=== PATIENT | female | born 1970 | race Caucasian/White ===

== ENCOUNTER 2021-12-13 18:31 | Inpatient (IN) | payer BC ==
[2021-12-13] VITALS (7 sets, daily range): BP systolic 180–225; BP diastolic 97–142
[~2021-12-13] VITALS: Ht 163 cm; Wt 83.9 kg
[~2021-12-13 18:31] MED LIST: AMLO10TA82 PO; CEPH500C PO; DXZS4T PO; LISI20TA PO; OXYC-12 PO; vicodin 5/325 PO
[2021-12-13] MEDS ORDERED: LACTATED RINGERS 1,000 ML IV ONE (19:15)
[2021-12-13 19:17] LABS: BASOPHILS % (AUTO) 1 % (0-10); EOSINOPHILS % (AUTO) 0 % (0-10); HEMATOCRIT 34 % (35-52); HEMOGLOBIN 10.8 g/dL (11.5-16.0); LYMPHOCYTES # (AUTO) 0.8 10^3/uL (1.0-4.0); LYMPHOCYTES % (AUTO) 14 % (12-44); MEAN CORPUSCULAR HEMOGLOBIN 27 pg (25-34); MEAN CORPUSCULAR HGB CONC 32 g/dL (32-36); MEAN CORPUSCULAR VOLUME 86 fL (80-99); MEAN PLATELET VOLUME 9.9 fL (9.0-12.2); MONOCYTES # (AUTO) 0.3 10^3/uL (0.0-1.0); MONOCYTES % (AUTO) 5 % (0-12); NEUTROPHILS # (AUTO) 4.5 10^3/uL (1.8-7.8); NEUTROPHILS % (AUTO) 80 % (42-75); PLATELET COUNT 147 10^3/uL (130-400); WHITE BLOOD COUNT 5.6 10^3/uL (4.3-11.0)
--- NOTE | 2021-12-13 19:29 | ED General ---
General Chief Complaint: Dizziness/Syncope Stated Complaint: PASSED OUT Nursing Triage Note: PT STATES SHE PASSED OUT AT [facility], STARTED SEEING SPOTS AND WOKE UP TO THE AMBULANCE THERE, DAUGHTER WAS WITH HER AND HELPED HER TO THE FLOOR, WAS CONFUSED WHEN SHE WOKE UP, UNSTEADY ON HER FEET. PT HAS HYPERTENSION BUT DOES NOT TAKE HER MEDICATION EVERY DAY, DRINKS A PINT OF VODKA EVERY OTHER DAY. Source of Information: Patient History of Present Illness Date Seen by Provider: Dec 13, 2021 Time Seen by Provider: 19:10 Initial Comments PT ARRIVES VIA POV PT STATES SHE FEELS FINE NOW AND DOES NOT NEED TO BE HERE, I WALK IN THE ROOM PT WAS BROUGHT IN BY DAUGHTER PT HAD A WITNESSED SYNCOPAL EPISODE--PT STOOD UP, GOT DIZZY, "STARTED SEEING SPOTS" AND BRIEFLY PASSED OUT--NO INJURY--PT WAS ASSISTED TO THE FLOOR BY DAUGHTER--THIS OCCURRED AT [facility] WAS CALLED, THEN PT REFUSED CARE WHEN THEY ARRIVED. DAUGHTER REPORTED THAT PT WAS CONFUSED WHEN SHE WOKE UP, BUT THAT HAS RESOLVED. NO INCONTINENCE NO HEADACHE NO VISION CHANGES NO PARESHTESIAS OR MOTOR DEFICITS NO CHEST PAIN NO SHORTNESS OF BREATH NO PALPITATIONS DENIES PAIN ANYWHERE IS A LITTLE UNSTEADY ON HER FEET WHEN SHE WALKED INTO ER, BUT ABLE TO WALK ON H ER OWN--DENIES DIZZINESS AT THIS TIME, OR WITH WALKING STATES "I THINK I MIGHT HAVE COVID--I WAS GOING TO GET TESTED" STATES ON FRIDAY AND FRIDAY, SHE HAD NAUSEA/VOMITING AND COUGH/RUNNY NOSE/ SORE THROAT NO FEVER PT IS NOT COVID VACCINATED. PT IS SUPPOSED TO BE ON BLOOD PRESSURE MEDICATION, BUT DOES NOT TAKE IT ON ANY REGULAR BASIS PT ALSO DRINKS A PINT OF VODKA A DAY, BUT HAS NOT HAD ANY TODAY LMP --6 MONTHS AGO, HAS HAD BTL PCP: DR. RODRIGES Allergies and Home Medications Allergies Coded Allergies: NKANo Known Allergies (Verified Allergy, Intermediate, 06/10/12) Patient Home Medication List Amlodipine Besylate (Norvasc Tablet) 10 Mg Tablet, 1 EACH PO DAILY, (Reported) Entered as Reported by: JADE SHEPPARD on 06/15/10 0801 Cephalexin Monohydrate (Cephalexin) 500 Mg Capsule, 1 EACH PO QID, (Reported) Entered as Reported by: MONICA WHALEN on 07/24/10 0900 Lisinopril (Zestril) 20 Mg Tablet, 1 EACH PO DAILY, (Reported) Entered as Reported by: LUCA SZYMANSKI on 06/13/10 1042 [vicodin 5/325] , 1 TAB PO Q3H PRN, (Reported) Entered as Reported by: MONICA WHALEN on 07/24/10 0859 Review of Systems Review of Systems Constitutional: see HPI EENTM: see HPI, nose congestion, throat pain Respiratory: see HPI, cough; No short of breath Cardiovascular: No chest pain, No edema, No palpitations; syncope Gastrointestinal: No abdominal pain, No diarrhea; nausea, vomiting Genitourinary: no symptoms reported Musculoskeletal: no symptoms reported; No back pain, No neck pain Skin: no symptoms reported; No rash Psychiatric/Neurological: See HPI; Denies Headache, Denies Numbness, Denies Paresthesia, Denies Seizure, Denies Tingling, Denies Tremors, Denies Weakness Hematologic/Lymphatic: No Symptoms Reported Immunological/Allergic: no symptoms reported Past Uslanza-Rpgnlq-Lenxls Hx Patient Social History Tobacco Use?: No Substance use?: No Alcohol Use?: Yes (PINT OF VODKA/DAY) Alcohol type: Hard Liquor Alcohol Frequency: Daily Immunizations Up To Date Tetanus Booster (TDap): Unknown Past Medical History Surgery/Hospitalization HX: HYPERTENSION Cardiac: Yes Hypertension Neurological: No Genitourinary: No Gastrointestinal: No Musculoskeletal: No Endocrine: No HEENT: No Cancer: No Psychosocial: Yes (ALCOHOL ABUSE) Integumentary: No Blood Disorders: No Adverse Reaction/Blood Tranf: No Family Medical History No Pertinent Family Hx Physical Exam Vital Signs Vital Signs - First Documented 12/13/21 18:58 Temp 37.0 Pulse 112 Resp 20 B/P (MAP) 211/125 (153) Pulse Ox 99 O2 Delivery Room Air Capillary Refill : Less Than 3 Seconds Height, Weight, BMI Height: 5'3" Weight: 211lbs. oz. [id number]; 30.00 BMI Method: General Appearance: No Apparent Distress, WD/WN HEENT: PERRL/EOMI, TMs Normal, Normal ENT Inspection, Pharynx Normal, Moist Mucous Membranes Neck: Normal Inspection Respiratory: Normal Breath Sounds, No Accessory Muscle Use, No Respiratory Distress Cardiovascular: Regular Rate, Rhythm, No Edema, No JVD, No Murmur, Normal Peripheral Pulses Gastrointestinal: Non Tender, Soft Back: Normal Inspection, No CVA Tenderness, No Vertebral Tenderness Extremity: Normal Capillary Refill, Normal Inspection, Normal Range of Motion, Non Tender, No Calf Tenderness, No Pedal Edema Neurologic/Psychiatric: Alert, Oriented x3, No Motor/Sensory Deficits, Normal Mood/Affect, sugar grinder II-XII Norm as Tested Skin: Normal Color, Warm/Dry, Ecchymosis (BRUISES OF VARIOUS AGES SCATTERED OVER BODY--PT STATES SHE FELL OUT OF BED--HAS A [employer] BED) Progress/Results/Core Measures Suspected Sepsis SIRS Temperature: Pulse: 112 Respiratory Rate: 20 Laboratory Tests 12/13/21 19:05: White Blood Count 5.6 Blood Pressure 211 /125 Mean: 153 Laboratory Tests 12/13/21 19:05: Creatinine 0.85, INR Comment 1.0, Platelet Count 147, Total Bilirubin 2.2H Results/Orders Lab Results Laboratory Tests Test 12/13/21 19:05 12/13/21 19:25 Range/Units White Blood Count 5.6 4.3-11.0 10^3/uL Red Blood Count 3.97 3.80-5.11 10^6/uL Hemoglobin 10.8 L 11.5-16.0 g/dL Hematocrit 34 L 35-52 % Mean Corpuscular Volume 86 80-99 fL Mean Corpuscular Hemoglobin 27 25-34 pg Mean Corpuscular Hemoglobin Concent 32 32-36 g/dL Red Cell Distribution Width 25.3 H 10.0-14.5 % Platelet Count 147 130-400 10^3/uL Mean Platelet Volume 9.9 9.0-12.2 fL Immature Granulocyte % (Auto) 1 % Neutrophils (%) (Auto) 80 H 42-75 % Lymphocytes (%) (Auto) 14 12-44 % Monocytes (%) (Auto) 5 0-12 % Eosinophils (%) (Auto) 0 0-10 % Basophils (%) (Auto) 1 0-10 % Neutrophils # (Auto) 4.5 1.8-7.8 10^3/uL Lymphocytes # (Auto) 0.8 L 1.0-4.0 10^3/uL Monocytes # (Auto) 0.3 0.0-1.0 10^3/uL Eosinophils # (Auto) 0.0 0.0-0.3 10^3/uL Basophils # (Auto) 0.0 0.0-0.1 10^3/uL Immature Granulocyte # (Auto) 0.0 0.0-0.1 10^3/uL Erythrocyte Sedimentation Rate 17 0-30 MM/HR Prothrombin Time 13.3 12.2-14.7 SEC INR Comment 1.0 0.8-1.4 Activated Partial Thromboplast Time 25 24-35 SEC D-Dimer 0.32 0.00-0.49 UG/ML Sodium Level 137 135-145 MMOL/L Potassium Level 2.4 *L 3.6-5.0 MMOL/L Chloride Level 95 L 98-107 MMOL/L Carbon Dioxide Level 26 21-32 MMOL/L Anion Gap 16 H 5-14 MMOL/L Blood Urea Nitrogen 5 L 7-18 MG/DL Creatinine 0.85 0.60-1.30 MG/DL Estimat Glomerular Filtration Rate 83 BUN/Creatinine Ratio 6 Glucose Level 103 70-105 MG/DL Calcium Level 8.9 8.5-10.1 MG/DL Corrected Calcium 8.7 8.5-10.1 MG/DL Magnesium Level 1.1 *L 1.6-2.4 MG/DL Total Bilirubin 2.2 H 0.1-1.0 MG/DL Aspartate Amino Transf (AST/SGOT) 174 H 5-34 U/L Alanine Aminotransferase (ALT/SGPT) 73 H 0-55 U/L Alkaline Phosphatase 91 40-136 U/L Total Creatine Kinase 523 H 29-168 U/L C-Reactive Protein High Sensitivity 0.15 0.00-0.50 MG/DL B-Type Natriuretic Peptide 52.7 <100.0 PG/ML Total Protein 7.8 6.4-8.2 GM/DL Albumin 4.2 3.2-4.5 GM/DL Serum Test, Qualitative NEGATIVE NEGATIVE Serum Alcohol < 10 <10 MG/DL My Orders Orders - SHAQUILLE MCKEON DO Ekg Tracing (12/13/21 19:06) Ed Iv/Invasive Line Start (12/13/21 19:09) Monitor-Rhythm Ecg Trace Only (12/13/21 19:09) Orthostatic Vital Signs (Adult (12/13/21 19:09) Cbc With Automated Diff (12/13/21 19:09) Comprehensive Metabolic Panel (12/13/21 19:09) Fibrin Degradation Products (12/13/21 19:09) Hcg,Qualitative Serum (12/13/21 19:09) Magnesium (12/13/21 19:09) Protime With Inr (12/13/21 19:09) Partial Thromboplastin Time (12/13/21 19:09) Ua Culture If Indicated (12/13/21 19:09) Troponin I [place] (12/13/21 19:09) Chest 1 View, Ap/Pa Only (12/13/21 19:09) Ed Iv/Invasive Line Start (12/13/21 19:11) Lactated Ringers (Lr 1000 Ml Iv Solution (12/13/21 19:15) Ct Head Wo-R/O Stroke (12/13/21 19:11) Ct Cervical Spine Wo (12/13/21 19:11) Alcohol (12/13/21 19:11) Bnp Jose (12/13/21 19:11) Creatine Kinase (12/13/21 19:11) Creatine Kinase Mb (12/13/21 19:11) Hs C Reactive Protein (12/13/21 19:11) Drug Screen Stat (Urine) (12/13/21 19:11) Thyroid Analyzer (12/13/21 19:11) Erythrocyte Sedimentation Rate (12/13/21 19:11) Myoglobin Serum (12/13/21 19:11) Covid 19 Inhouse Test (12/13/21 19:11) Influenza A And B By Pcr (12/13/21 19:11) Isolation Central Supply Req (12/13/21 19:11) D5 1/2 Ns W/Kcl 40 Meq/L (Dextrose 5%/0. (12/13/21 20:00) Magnesium 1 Gm/100 Ml Ivpb (Magnesium Turner (12/13/21 20:00) Vital Signs/I&O 12/13/21 18:58 Temp 37.0 Pulse 112 Resp 20 B/P (MAP) 211/125 (153) Pulse Ox 99 O2 Delivery Room Air Capillary Refill : Less Than 3 Seconds Blood Pressure Mean: 153 Departure Departure-Patient Inst. Referrals: GREGORY RODRIGES MD (PCP/Family) Primary Care Physician SHAQUILLE MCKEON DO Dec 13, 2021 19:29
[2021-12-13 19:31] LABS: FIBRIN DEGRADATION PRODUCTS 0.32 UG/ML (0.00-0.49); PROTHROMBIN TIME PATIENT 13.3 SEC (12.2-14.7)
--- NOTE | 2021-12-13 19:32 | Diagnostic Imaging Report ---
INDICATION: Passed out earlier today, dizziness. TECHNIQUE: Single view chest 7:11 PM. CORRELATION STUDY: None. FINDINGS: Heart size and mediastinum are enlarged and prominent. Vasculature overall within normal limits. This may be accentuated by technique and limited depth of inspiration. The lungs are clear with no consolidating infiltrate. There is no significant effusion or pneumothorax. IMPRESSION: Cardiac enlargement without overt failure. May be accentuated by limited depth of inspiration. No infiltrate. Dictated by: Dictated on workstation # [id number]
[2021-12-13 19:34] LABS: ERYTHROCYTE SEDIMENTATION RATE 17 MM/HR (0-30)
--- NOTE | 2021-12-13 19:35 | Diagnostic Imaging Report ---
PROCEDURE: CT head wo r/o stroke. TECHNIQUE: Multiple contiguous axial images were obtained through the brain without the use of intravenous contrast. Auto Exposure Controls were utilized during the CT exam to meet ALARA standards for radiation dose reduction. INDICATION: 51-year-old female, passed out at [employer] earlier today. Hypertensive. CORRELATION: None FINDINGS: There is no midline shift or mass effect. The ventricles and sulci are unremarkable. No evidence for acute intracranial hemorrhage, abnormal extra-axial fluid collections or cerebral edema is present. The basilar cisterns are unremarkable. The bony calvarium is intact. The visualized paranasal sinuses and mastoid air cells are clear. IMPRESSION: Negative appearing noncontrast CT of the head. Dictated by: Dictated on workstation # [id number]
[2021-12-13 19:40] LABS: ALANINE AMINOTRANSFERASE 73 U/L (0-55); ALBUMIN 4.2 GM/DL (3.2-4.5); ALKALINE PHOSPHATASE 91 U/L (40-136); BILIRUBIN,TOTAL 2.2 MG/DL (0.1-1.0); BUN/CREATININE RATIO 6; CALCIUM 8.9 MG/DL (8.5-10.1); CARBON DIOXIDE 26 MMOL/L (21-32); CHLORIDE 95 MMOL/L (98-107); CREATINE KINASE 523 U/L (29-168); CREATININE SERUM 0.85 MG/DL (0.60-1.30); GFR ESTIMATED 83; GLUCOSE 103 MG/DL (70-105); SODIUM 137 MMOL/L (135-145); TOTAL PROTEIN 7.8 GM/DL (6.4-8.2)
[2021-12-13 19:50] LABS: POTASSIUM 2.4 MMOL/L (3.6-5.0)
[2021-12-13 19:51] LABS: MAGNESIUM 1.1 MG/DL (1.6-2.4)
[2021-12-13 19:59] LABS: TSH (THYROID ANALYZER) 0.66 UIU/ML (0.35-4.94)
[2021-12-13] MEDS ORDERED: D5 1/2 NS W/KCL 40 MEQ/L 1,000 ML IV SCH (20:00)
[2021-12-13] MEDS ORDERED: hydrALAZINE (APESOLINE) 20 MG/ML VIAL IV ONE (20:00)
[2021-12-13 20:06] LABS: CREATINE KINASE MB 10.2 NG/ML (<6.6)
--- NOTE | 2021-12-13 20:09 | Diagnostic Imaging Report ---
PROCEDURE: CT cervical spine without contrast. TECHNIQUE: Multiple contiguous axial images were obtained through the cervical spine without the use of intravenous contrast. Sagittal and coronal reformations were then performed. Auto Exposure Controls were utilized during the CT exam to meet ALARA standards for radiation dose reduction. 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 CORRELATION STUDY: None FINDINGS: There is normal alignment and curvature of the cervical spine. There is no evidence for acute bony abnormality. The odontoid is intact. The prevertebral soft tissues are normal. Lung apices unremarkable. IMPRESSION: 1. No evidence for acute cervical spine fracture or subluxation. Dictated by: Dictated on workstation # [id number]
[2021-12-13 21:07] LABS: BILIRUBIN,URINE NEGATIVE (NEGATIVE); CLARITY,URINE SL CLOUDY; COLOR,URINE YELLOW; GLUCOSE, URINE (UA) NEGATIVE (NEGATIVE); KETONES,URINE TRACE (NEGATIVE); LEUKOCYTE ESTERASE ,URINE NEGATIVE (NEGATIVE); NITRITE,URINE NEGATIVE (NEGATIVE); PH,URINE 6.5 (5-9); PROTEIN,URINE NEGATIVE (NEGATIVE)
[2021-12-13 21:30] LABS: AMPHETAMINE SCREEN, URINE NEGATIVE (NEGATIVE); BARBITURATE SCREEN URINE NEGATIVE (NEGATIVE); BENZODIAZEPINES SCREEN URINE POSITIVE (NEGATIVE); CANNABINOID SCREEN, URINE NEGATIVE (NEGATIVE); COCAINE SCREEN URINE NEGATIVE (NEGATIVE); METHADONE STAT NEGATIVE (NEGATIVE); OPIATE SCREEN URINE NEGATIVE (NEGATIVE); OXYCODONE STAT NEGATIVE (NEGATIVE); PROPOXYPHENE STAT NEGATIVE (NEGATIVE); TRICYCLIC ANTIDEPRESSANTS SCRE NEGATIVE (NEGATIVE)
[2021-12-13 21:39] LABS: BACTERIA,URINE FEW /HPF; HYALINE CASTS, URINE RARE /LPF; WBC,URINE 0-2 /HPF
[2021-12-13] MEDS: MAGNESIUM 1 GM/100 ML IVPB 100 ML IV SCH (22:06)
[2021-12-13] MEDS: D5 1/2 NS W/KCL 40 MEQ/L 1,000 ML IV SCH (22:07)
[2021-12-13] MEDS: amLODIPine 10 MG (NORVASC) TAB PO SCH (22:10)
[2021-12-13] MEDS: lisINopril 10 MG (PRINIVIL) TABLET PO SCH (22:10)
[2021-12-13] MEDS ORDERED: ONDANSETRON 4 MG (ZOFRAN) ORAL DISSOLVE TAB SL PRN (22:15)
[2021-12-13] MEDS ORDERED: LORazepam 1 MG (ATIVAN) TAB PO PRN (22:15)
[2021-12-13] MEDS ORDERED: SENNA W/DOCUSATE (SENOKOT S) TABLET PO PRN (22:15)
[2021-12-13] MEDS ORDERED: 1/2 NS IV SOLUTION 1,000 ML IV PRN (22:15)
[2021-12-13] MEDS ORDERED: D5 1/2 NS 1000 ML IV SOLUTION 1,000 ML IV PRN (22:15)
[2021-12-13] MEDS ORDERED: ANTACID SUSP 30 ML UDC (MYLANTA) PO PRN (22:15)
[2021-12-13] MEDS ORDERED: ONDANSETRON 4 MG/2 ML (SDV) Z0FRAN IV PRN (22:15)
[2021-12-13] MEDS: ACETAMINOPHEN 325 MG TABLET PO PRN (22:47)
[2021-12-14] VITALS (11 sets, daily range): BP systolic 146–190; BP diastolic 90–113
[2021-12-14] MEDS ORDERED: hydrALAZINE (APESOLINE) 20 MG/ML VIAL IV ONE (00:15)
[2021-12-14] MEDS: MAGNESIUM 1 GM/100 ML IVPB 100 ML IV SCH (00:49)
[2021-12-14] MEDS: LORazepam 1 MG (ATIVAN) TAB PO PRN ×4 (01:45→15:55)
[2021-12-14] MEDS: D5 1/2 NS W/KCL 40 MEQ/L 1,000 ML IV SCH (04:45)
[2021-12-14 05:05] LABS: BASOPHILS % (AUTO) 1 % (0-10); EOSINOPHILS % (AUTO) 1 % (0-10); HEMATOCRIT 32 % (35-52); HEMOGLOBIN 10.1 g/dL (11.5-16.0); LYMPHOCYTES % (AUTO) 19 % (12-44); MEAN CORPUSCULAR HEMOGLOBIN 27 pg (25-34); MEAN CORPUSCULAR HGB CONC 32 g/dL (32-36); MEAN CORPUSCULAR VOLUME 85 fL (80-99); MEAN PLATELET VOLUME 9.8 fL (9.0-12.2); MONOCYTES # (AUTO) 0.5 10^3/uL (0.0-1.0); MONOCYTES % (AUTO) 9 % (0-12); NEUTROPHILS # (AUTO) 3.9 10^3/uL (1.8-7.8); NEUTROPHILS % (AUTO) 71 % (42-75); PLATELET COUNT 126 10^3/uL (130-400); WHITE BLOOD COUNT 5.5 10^3/uL (4.3-11.0)
[2021-12-14 05:20] LABS: ALBUMIN 3.4 GM/DL (3.2-4.5)
[2021-12-14 05:22] LABS: CALCIUM 8.3 MG/DL (8.5-10.1)
[2021-12-14 05:23] LABS: TOTAL PROTEIN 6.5 GM/DL (6.4-8.2)
[2021-12-14 05:25] LABS: BILIRUBIN,TOTAL 2.1 MG/DL (0.1-1.0)
[2021-12-14 05:26] LABS: CREATININE SERUM 0.6 MG/DL (0.60-1.30)
[2021-12-14 05:29] LABS: MAGNESIUM 1.8 MG/DL (1.6-2.4)
[2021-12-14 05:30] LABS: POTASSIUM 2.5 MMOL/L (3.6-5.0)
[2021-12-14] MEDS ORDERED: KCL 20 MEQ TAB (K-DUR) PO ONE (05:45)
[2021-12-14] MEDS: ACETAMINOPHEN 325 MG TABLET PO PRN (06:26)
--- NOTE | 2021-12-14 07:51 | History & Physicial ---
History of Present Illness History of Present Illness Reason for visit/HPI 51-year-old female admitted through emergency department during the evening of December 13, 2021 after passing out in [employer]. She does have known hypertension but hasn't been real compliant about taking her medications. Patient was brought in by her daughter who was with her at the time of the event. Apparently patient started seeing spots and passed out. She reports wakening to emergency personnel and a bunch of people standing around her. She did not strike her head as her daughter caught her. She denies any chest pain, shortness of breath or palpitations. She has been under some stress and does report taking an occasional alprazolam. She also admits to me today that she had been drinking about a pint of vodka daily. She had been keeping this secret and was somewhat embarrassed to admit to it. Date of Admission Dec 13, 2021 at 20:30 Date Seen by a Provider: Dec 14, 2021 Time Seen by a Provider: 07:15 I consulted on this patient on 12/14/21 07:46 Attending Physician Varun Rodriges MD Admitting Physician Admitting Physician: Varun Rodriges MD Attending Physician: Varun Rodriges MD Consult Allergies and Home Medications Allergies Coded Allergies: AVRILANo Known Allergies (Verified Allergy, Intermediate, 06/10/12) Patient Home Medication List Home Medication List Reviewed: Yes Amlodipine Besylate (Norvasc Tablet) 10 Mg Tablet, 1 EACH PO DAILY, (Reported) Entered as Reported by: JADE SHEPPARD on 06/15/10 0801 Cephalexin Monohydrate (Cephalexin) 500 Mg Capsule, 1 EACH PO QID, (Reported) Entered as Reported by: MONICA WHALEN on 07/24/10 0900 Lisinopril (Zestril) 20 Mg Tablet, 1 EACH PO DAILY, (Reported) Entered as Reported by: LUCA SZYMANSKI on 06/13/10 1042 [vicodin 5/325] , 1 TAB PO Q3H PRN, (Reported) Entered as Reported by: MONICA WHALEN on 07/24/10 0859 Past Eiyeiso-Hganxh-Sxsqop Hx Patient Social History Marrital Status: Employed/Student: employed ([employer]) Alcohol Beverage of Choice: Vodka Have you traveled recently?: No Alcohol Use?: Yes Pt feels they are or have been: No Immunizations Up To Date Tetanus Booster (TDap): Unknown Cardiovascular Yes Hypertension Neurological No Genitourinary No Gastrointestinal No Musculoskeletal No Endocrine History of Endocrine Disorders: No HEENT History of HEENT Disorders: No Cancer No Psychosocial History of Psychiatric Problem: Yes (ALCOHOL ABUSE) Integumentary History of Skin or Integumenta: No Blood Transfusions History of Blood Disorders: No Adverse Reaction to a Blood Tr: No Family Medical History Significant Family History: No Pertinent Family Hx Review of Systems Constitutional: see HPI Physical Exam Vital Signs Vital Signs - First Documented 12/13/21 12/13/21 18:58 21:10 Temp 37.0 Pulse 112 Resp 20 B/P (MAP) 211/125 (153) Pulse Ox 99 O2 Delivery Room Air O2 Flow Rate 196.00 119.00 Capillary Refill : Less Than 3 Seconds Height, Weight, BMI Height: 5'3" Weight: 211lbs. oz. 95.777270nq; 31.57 BMI Method: General Appearance: No Apparent Distress (in ICU) Eyes: Bilateral Eye Normal Inspection Neck: Full Range of Motion Respiratory: Lungs Clear Cardiovascular: Regular Rate, Rhythm Gastrointestinal: Soft Rectal: Deferred Neurologic/Psychiatric: Alert, Oriented x3 Comments [facility], [place] NAME: MCKENNA DIAZ MED REC#: [id number] PT STATUS: REG ER : 1970 PHYSICIAN: SHAQUILLE MCKEON DO ADMIT DATE: 12/13/21/ER Signed Date of Exam:12/13/21 CHEST 1 VIEW, AP/PA ONLY INDICATION: Passed out earlier today, dizziness. TECHNIQUE: Single view chest 7:11 PM. CORRELATION STUDY: None. FINDINGS: Heart size and mediastinum are enlarged and prominent. Vasculature overall within normal limits. This may be accentuated by technique and limited depth of inspiration. The lungs are clear with no consolidating infiltrate. There is no significant effusion or pneumothorax. IMPRESSION: Cardiac enlargement without overt failure. May be accentuated by limited depth of inspiration. No infiltrate. Dictated by: Dictated on workstation # [id number] Dict: 12/13/[id number] Trans: 12/13/212032 [facility] [id number] Interpreted by: DREW BOB DO Electronically signed by: RDEW BOB DO 12/13/212032 Assessment/Plan Assessment and Plan 1. Uncontrolled hypertension -Patient has received hydralazine 10 mg IV twice since admission. -She was started back on her home medication lisinopril 20 along with amlodipine 5 mg daily -Cardiology input and whether she needs further cardiac testing 2. Syncopal episode etiology multifactorialas she has had uncontrolled hypertension, stress, medication alprazolam, as well as alcohol -No further syncopal episodes since admitted. 3. Hypokalemia -Replacement given through IV fluids as well as by mouth Admission Diagnosis 1. Uncontrolled hypertension 2. Syncopal episode etiology multifactorialas she has had uncontrolled hypertension, stress, medication alprazolam, as well as alcohol 3. Hypokalemia Admission Status: Inpatient Order (span 2 midnights) Reason for Inpatient Admission: further blood pressure monitoring, correction of hypokalemia, cardiology consultation VARUN RODRIGES MD Dec 14, 2021 07:51
[2021-12-14] MEDS: lisINopril 10 MG (PRINIVIL) TABLET PO SCH (08:12)
[2021-12-14] MEDS: amLODIPine 10 MG (NORVASC) TAB PO SCH (08:12)
[2021-12-14] MEDS: KCL 20 MEQ TAB (K-DUR) PO SCH ×2 (08:21→20:27)
[2021-12-14] MEDS ORDERED: meTOproloL SUCCINATE 50 MG (TOPROL XL) TAB PO NR (08:30)
--- NOTE | 2021-12-14 08:43 | Consultation-Cardiology ---
HPI-Cardiology Cardiology Consultation: Date of Consultation 12/14/21 Time Seen by a Provider: 08:15 Date of Admission 12-13-21 Attending Physician Varun Garcia MD Admitting Physician Admitting Physician: Varun Garcia MD Attending Physician: Varun Garcia MD Consulting Physician Camelia Delong MD HPI: Chief Complaint: Syncope Ms. Keene is a 51 yr old female admitted to ICU 11 from the ED. She reports she was at [employer] yesterday with her daughter when she started to feel unwell. She reports she was seeing spots and then she passed out. She reports the next thing she recalls she was on the floor surrounded by [employer] employees and the police. She reports she has never had a syncopal episode yet. She reports she drinks daily, at least a pint of Vodka every other day. She reports she has not eaten any food in about the last 3 days. She reports she has had some nausea and diarrhea the last few days. She denies any CP or SOB. She reports occ she feels her heart fluttering. She reports she will take a Xanax occ from her friend (they are not Rx'd to the pt). She reports he last Xanax was a few days ago. She reports h/o high blood pressure, but she does not take her Lisinopril that has been Rx'd to her. She reports h/o anxiety. She states she is feeling much better this morning except for some nausea. Review of Systems-Cardiology Review of Systems Constitutional: No chills, No fever; malaise Eyes: No vision change Ears/Nose/Throat: No epistaxis, No recent hearing loss Respiratory: As described under HPI Cardiovascular: As described under HPI Gastrointestinal: As described under HPI Genitourinary: No dysuria, No hematuria Musculoskeletal: no symptoms reported Skin: No rash on exposed areas, No ulcerations on exposed areas Psychiatric/Neurological: As described under HPI, anxiety, depression Hematologic: No bleeding abnormalities LLS-Fmllmb-Sucwsw Hx Patient Social History Marrital Status: Employed/Student: employed ([employer]) Have you traveled recently?: No Alcohol Use?: Yes Pt feels they are or have been: No Immunizations Up To Date Tetanus Booster (TDap): Unknown Past Medical History PMH As described under Assessment. Family Medical History Family Medical History: She reports he mother had high blood pressure and a brain aneurysm. Allergies and Home Medications Allergies Coded Allergies: Romero Known Allergies (Verified Allergy, Intermediate, 06/10/12) Patient Home Medication List Aspirin (Aspirin EC) 81 Mg Tablet.dr, 81 MG PO DAILY, (Reported) Entered as Reported by: LAVELLE COTTRELL on 12/14/21 1245 Last Action: Reviewed Omeprazole Magnesium (Prilosec Otc) 20 Mg Tablet.dr, 20 MG PO DAILY PRN for HEARTBURN, (Reported) Entered as Reported by: LAVELLE COTTRELL on 12/14/21 1245 Last Action: Reviewed Discontinued Medications Amlodipine Besylate (Norvasc Tablet) 10 Mg Tablet, 1 EACH PO DAILY, (Reported) Discontinued Reason: No Longer Taking Entered as Reported by: JADE SHEPPARD on 06/15/10 0801 Last Action: Discontinued Cephalexin Monohydrate (Cephalexin) 500 Mg Capsule, 1 EACH PO QID, (Reported) Discontinued Reason: No Longer Taking Entered as Reported by: MONICA WHALEN on 07/24/10 0900 Last Action: Discontinued Lisinopril (Zestril) 20 Mg Tablet, 1 EACH PO DAILY, (Reported) Discontinued Reason: No Longer Taking Entered as Reported by: LUCA SZYMANSKI on 06/13/10 1042 Last Action: Discontinued [vicodin 5/325] , 1 TAB PO Q3H PRN, (Reported) Discontinued Reason: No Longer Taking Entered as Reported by: MONICA WHALEN on 07/24/10 0859 Last Action: Discontinued Physical Exam-Cardiology Physical Exam Vital Signs/I&O 12/14/21 12/14/21 12/14/21 12/14/21 03:00 04:00 05:00 05:29 Pulse 80 81 105 Resp 20 23 24 B/P (MAP) 165/90 (115) 151/94 (113) 183/103 (129) Pulse Ox 97 97 97 95 O2 Delivery Room Air Room Air Room Air Room Air 12/14/21 12/14/21 12/14/21 12/14/21 06:00 07:00 08:00 08:00 Temp 37.2 Pulse 76 87 83 Resp 24 24 B/P (MAP) 146/92 (110) 174/90 (118) Pulse Ox 95 97 O2 Delivery Room Air Room Air 12/14/21 12/14/21 12/14/21 12/14/21 08:00 12:00 12:00 12:57 Pulse 68 67 Resp 15 B/P (MAP) 181/113 (135) Pulse Ox 96 100 94 O2 Delivery Room Air Room Air Room Air 12/14/21 00:00 Intake Total 1100 ml Balance 1100 ml Capillary Refill : Less Than 3 Seconds Constitutional: AAO x 3, well-developed, well-nourished HEENT: PERRL, hearing is well preserved, oral hygience is good Neck: No carotid bruit; carotid pulses are 2 + bilaterally Respiratory: No accessory muscle use, No respiratory distress; chest expansion is symmetric, chest is bilaterally symmetric Cardiovascular: regular rate-rhythm; No JVD; S1 and S2 Gastrointestinal: No tender; soft, round, audible bowel sounds Extremities: abrasion (RLE with a healing abrasion and bruising to her right ankle), no lower extremity edema bilateral Neurologic/Psychiatric: grossly intact (moves all extremities) Skin: No rash on exposed areas, No ulcerations on exposed areas Data Review Labs Laboratory Tests 12/13/21 19:05: White Blood Count 5.6, Red Blood Count 3.97, Hemoglobin 10.8L, Hematocrit 34L, Mean Corpuscular Volume 86, Mean Corpuscular Hemoglobin 27, Mean Corpuscular Hemoglobin Concent 32, Red Cell Distribution Width 25.3H, Platelet Count 147, Mean Platelet Volume 9.9, Immature Granulocyte % (Auto) 1, Neutrophils (%) (Auto) 80H, Lymphocytes (%) (Auto) 14, Monocytes (%) (Auto) 5, Eosinophils (%) (Auto) 0, Basophils (%) (Auto) 1, Neutrophils # (Auto) 4.5, Lymphocytes # (Auto) 0.8L, Monocytes # (Auto) 0.3, Eosinophils # (Auto) 0.0, Basophils # (Auto) 0.0, Immature Granulocyte # (Auto) 0.0, Erythrocyte Sedimentation Rate 17, Prothrombin Time 13.3, INR Comment 1.0, Activated Partial Thromboplast Time 25, D-Dimer 0.32, Sodium Level 137, Potassium Level 2.4*L, Chloride Level 95L, Carbon Dioxide Level 26, Anion Gap 16H, Blood Urea Nitrogen 5L, Creatinine 0.85, Estimat Glomerular Filtration Rate 83, BUN/Creatinine Ratio 6, Glucose Level 103, Calcium Level 8.9, Corrected Calcium 8.7, Magnesium Level 1.1*L, Total Bilirubin 2.2H, Aspartate Amino Transf (AST/SGOT) 174H, Alanine Aminotransferase (ALT/SGPT) 73H, Alkaline Phosphatase 91, Total Creatine Kinase 523H, Creatine Kinase MB 10.2*H, Myoglobin 915.8H, Troponin I < 0.028, C-Reactive Protein High Sensitivity 0.15, B-Type Natriuretic Peptide 52.7, Total Protein 7.8, Albumin 4.2, TSH [place] Testing 0.66, Serum Test, Qualitative NEGATIVE, Serum Alcohol < 10 12/13/21 19:25: Influenza Type A (RT-PCR) Not Detected, Influenza Type B (RT-PCR) Not Detected, SARS-CoV-2 RNA (RT-PCR) Not Detected 12/13/21 20:54: Urine Color YELLOW, Urine Clarity SL CLOUDY, Urine pH 6.5, Urine Specific [employer] 1.010L, Urine Protein NEGATIVE, Urine Glucose (UA) NEGATIVE, Urine [place] es TRACEH, Urine Nitrite NEGATIVE, Urine Bilirubin NEGATIVE, Urine Urobilinogen 2.0, Urine Leukocyte Esterase NEGATIVE, Urine RBC (Auto) NEGATIVE, Urine RBC NONE, Urine WBC 0-2, Urine Crystals NONE, Urine Bacteria FEWH, Urine Casts PRESENT, Urine Hyaline Casts RARE, Urine Mucus NEGATIVE, Urine Culture Indicated YES, Urine Opiates Screen NEGATIVE, Urine Oxycodone Screen NEGATIVE, Urine Methadone Screen NEGATIVE, Urine Propoxyphene Screen NEGATIVE, Urine Barbiturates Screen NEGATIVE, Ur Tricyclic Antidepressants Screen NEGATIVE, Urine Phencyclidine Screen NEGATIVE, Urine Amphetamines Screen NEGATIVE, Urine Methamphetamines Screen NEGATIVE, Urine Benzodiazepines Screen POSITIVEH, Urine Cocaine Screen NEGATIVE, Urine Cannabinoids Screen NEGATIVE 12/14/21 04:55: White Blood Count 5.5, Red Blood Count 3.73L, Hemoglobin 10.1L, Hematocrit 32L, Mean Corpuscular Volume 85, Mean Corpuscular Hemoglobin 27, Mean Corpuscular Hemoglobin Concent 32, Red Cell Distribution Width 25.6H, Platelet Count 126L, Mean Platelet Volume 9.8, Immature Granulocyte % (Auto) 0, Neutrophils (%) (Auto) 71, Lymphocytes (%) (Auto) 19, Monocytes (%) (Auto) 9, Eosinophils (%) (Auto) 1, Basophils (%) (Auto) 1, Neutrophils # (Auto) 3.9, Lymphocytes # (Auto) 1.0, Monocytes # (Auto) 0.5, Eosinophils # (Auto) 0.0, Basophils # (Auto) 0.0, Immature Granulocyte # (Auto) 0.0, Sodium Level 139, Potassium Level 2.5*L, Chloride Level 101, Carbon Dioxide Level 25, Anion Gap 13, Blood Urea Nitrogen 4L, Creatinine 0.60, Estimat Glomerular Filtration Rate 109, BUN/Creatinine Ratio 7, Glucose Level 109H, Calcium Level 8.3L, Corrected Calcium 8.8, Magnesium Level 1.8, Total Bilirubin 2.1H, Aspartate Amino Transf (AST/SGOT) 119H, Alanine Aminotransferase (ALT/SGPT) 55, Alkaline Phosphatase 76, Total Protein 6.5, Albumin 3.4 12/14/21 13:20: Sodium Level 140, Potassium Level 2.8L, Chloride Level 104, Carbon Dioxide Level 26, Anion Gap 10, Blood Urea Nitrogen 2L, Creatinine 0.62, Estimat Glomerular Filtration Rate 108, BUN/Creatinine Ratio 3, Glucose Level 114H, Calcium Level 8.2L Radiology NAME: MCKENNA KEENE [facility] REC#: [id number] PT STATUS: REG ER : 1970 PHYSICIAN: SHAQUILLE MCKEON DO ADMIT DATE: 12/13/21/ER Signed Date of Exam:12/13/21 CHEST 1 VIEW, AP/PA ONLY INDICATION: Passed out earlier today, dizziness. TECHNIQUE: Single view chest 7:11 PM. CORRELATION STUDY: None. FINDINGS: Heart size and mediastinum are enlarged and prominent. Vasculature overall within normal limits. This may be accentuated by technique and limited depth of inspiration. The lungs are clear with no consolidating infiltrate. There is no significant effusion or pneumothorax. IMPRESSION: Cardiac enlargement without overt failure. May be accentuated by limited depth of inspiration. No infiltrate. Dictated by: Dictated on workstation # [id number] Dict: 12/13/211925 Trans: 12/13/212032 [facility] [id number] Interpreted by: DREW OBB DO Electronically signed by: DREW BOB DO 12/13/212032 NAME: MCKENNA KEENE MED REC#: [id number] PT STATUS: ADM Anne : 1970 PHYSICIAN: SHAQUILLE MCKEON DO ADMIT DATE: 12/13/21/ICU Signed Date of Exam:12/13/21 CT CERVICAL SPINE WO PROCEDURE: CT cervical spine without contrast. TECHNIQUE: Multiple contiguous axial images were obtained through the cervical spine without the use of intravenous contrast. Sagittal and coronal reformations were then performed. Auto Exposure Controls were utilized during the CT exam to meet ALARA standards for radiation dose reduction. 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 CORRELATION STUDY: None FINDINGS: There is normal alignment and curvature of the cervical spine. There is no evidence for acute bony abnormality. The odontoid is intact. The prevertebral soft tissues are normal. Lung apices unremarkable. IMPRESSION: 1. No evidence for acute cervical spine fracture or subluxation. Dictated by: Dictated on workstation # [id number] Dict: 12/13/211934 Trans: 12/13/212314 DO [id number] Interpreted by: DREW BOB DO Electronically signed by: DREW BOB DO 12/13/212314 NAME: MCKENNA KEENE [facility] REC#: [id number] PT STATUS: ADM Anne : 1970 PHYSICIAN: SHAQUILLE MCKEON DO ADMIT DATE: 12/13/21/ICU Signed Date of Exam:12/13/21 CT HEAD WO-R/O STROKE PROCEDURE: CT head wo r/o stroke. TECHNIQUE: Multiple contiguous axial images were obtained through the brain without the use of intravenous contrast. Auto Exposure Controls were utilized during the CT exam to meet ALARA standards for radiation dose reduction. INDICATION: 51-year-old female, passed out at [employer] earlier today. Hypertensive. CORRELATION: None FINDINGS: There is no midline shift or mass effect. The ventricles and sulci are unremarkable. No evidence for acute intracranial hemorrhage, abnormal extra-axial fluid collections or cerebral edema is present. The basilar cisterns are unremarkable. The bony calvarium is intact. The visualized paranasal sinuses and mastoid air cells are clear. IMPRESSION: Negative appearing noncontrast CT of the head. Dictated by: Dictated on workstation # [id number] Dict: 12/13/211932 Trans: 12/13/212050 DO [id number] Interpreted by: DREW BOB DO Electronically signed by: DREW BOB DO 12/13/212050 ECG Impression ECG Comment Sinus tachycardia with LVH A/P-Cardiology Assessment/Admission Diagnosis Syncope - likely secondary to electrolyte abnormalities and acute intoxication Uncontrolled HTN Cardiomegaly ETOH abuse - 1 pint of Vodka approx every other day - immediate cessation advised - management of withdrawal per medical services Electrolyte abnormalities - d/t chronic ETOH abuse Liver enzyme elevation - d/t chronic ETOH abuse Noncompliance with medications Discussion and Recomendations Syncope likely secondary to acute intoxication and electrolyte abnormalities - replace electrolytes - monitor lab closely Cardiomegaly - Echocardiogram today ETOH abuse - cessation advise - management of withdrawal per medical services Uncontrolled HTN - Continue Norvasc - Add BB Further recs will be based on her hospital course We would like to thank medical services for this consult JOBY OLIVIER Dec 14, 2021 08:43
[2021-12-14] MEDS ORDERED: THIAMINE INJECTION 100 MG, FOLIC ACID INJECTION 1 MG, MAGNESIUM SULFATE 2 GM, VITAMIN M... IV SCH ×5 (09:00)
--- NOTE | 2021-12-14 09:58 | Consultation-Cardiology ---
HPI-Cardiology Cardiology Consultation: Date of Consultation 12/14/21 Time Seen by a Provider: 09:30 Date of Admission Attending Physician Varun Garcia MD Admitting Physician Admitting Physician: Varun Garcia MD Attending Physician: Varun Garcia MD Consulting Physician JUSTIN CRAMER MD, MA, FACP, FACC, FSCAI, CCDS HPI: Chief Complaint: Syncope Ms. Keene is a 51 yr old female admitted to ICU 11 from the ED. She reports she was at [employer] yesterday with her daughter when she started to feel unwell. She reports she was seeing spots and then she passed out. She reports the next thing she recalls she was on the floor surrounded by [employer] employees and the police. She reports she has never had a syncopal episode yet. She reports she drinks daily, at least a pint of Vodka every other day. She reports she has not eaten any food in about the last 3 days. She reports she has had some nausea and diarrhea the last few days. She denies any CP or SOB. She reports occ she feels her heart fluttering. She reports she will take a Xanax occ from her friend (they are not Rx'd to the pt). She reports he last Xanax was a few days ago. She reports h/o high blood pressure, but she does not take her Lisinopril that has been Rx'd to her. She reports h/o anxiety. She states she is feeling much better this morning except for some nausea. Review of Systems-Cardiology Review of Systems Constitutional: No chills, No fever; malaise Eyes: No vision change Ears/Nose/Throat: No epistaxis, No recent hearing loss Respiratory: As described under HPI Cardiovascular: As described under HPI Gastrointestinal: As described under HPI Genitourinary: No dysuria, No hematuria Musculoskeletal: no symptoms reported Skin: No rash on exposed areas, No ulcerations on exposed areas Psychiatric/Neurological: As described under HPI, anxiety, depression Hematologic: No bleeding abnormalities SGQ-Bpgbtz-Joaqws Hx Patient Social History Marrital Status: Employed/Student: employed ([employer]) Have you traveled recently?: No Alcohol Use?: Yes Pt feels they are or have been: No Immunizations Up To Date Tetanus Booster (TDap): Unknown Past Medical History PMH As described under Assessment. Family Medical History Family Medical History: She reports he mother had high blood pressure and a brain aneurysm. Allergies and Home Medications Allergies Coded Allergies: Romero Known Allergies (Verified Allergy, Intermediate, 06/10/12) Patient Home Medication List Home Medication List Reviewed: Yes Amlodipine Besylate (Norvasc Tablet) 10 Mg Tablet, 1 EACH PO DAILY, (Reported) Entered as Reported by: JADE SHEPPARD on 06/15/10 0801 Cephalexin Monohydrate (Cephalexin) 500 Mg Capsule, 1 EACH PO QID, (Reported) Entered as Reported by: MONICA WHALEN on 07/24/10 0900 Lisinopril (Zestril) 20 Mg Tablet, 1 EACH PO DAILY, (Reported) Entered as Reported by: LUCA SZYMANSKI on 06/13/10 1042 [vicodin 5/325] , 1 TAB PO Q3H PRN, (Reported) Entered as Reported by: MONICA WHALEN on 07/24/10 0859 Physical Exam-Cardiology Physical Exam Vital Signs/I&O 12/13/21 12/13/21 12/13/21 12/13/21 22:00 22:15 22:30 22:45 Pulse 107 108 111 98 Resp 12 12 11 22 B/P (MAP) 180/97 (124) 191/101 (131) 203/110 (141) 183/129 (147) Pulse Ox 96 98 98 98 O2 Delivery Room Air Room Air Room Air Room Air 12/13/21 12/14/21 12/14/21 12/14/21 23:00 00:00 01:00 01:00 Pulse 92 99 106 106 Resp 19 19 21 B/P (MAP) 188/104 (132) 190/109 (136) 183/99 (127) Pulse Ox 97 96 98 O2 Delivery Room Air Room Air Room Air 12/14/21 12/14/21 12/14/21 12/14/21 01:29 02:00 03:00 04:00 Pulse 100 80 81 Resp 14 20 23 B/P (MAP) 161/90 (113) 165/90 (115) 151/94 (113) Pulse Ox 96 96 97 97 O2 Delivery Room Air Room Air Room Air Room Air 12/14/21 12/14/21 12/14/21 12/14/21 05:00 05:29 06:00 07:00 Pulse 105 76 87 Resp 24 24 B/P (MAP) 183/103 (129) 146/92 (110) Pulse Ox 97 95 95 O2 Delivery Room Air Room Air Room Air 12/14/21 08:00 Pulse 83 Resp 24 B/P (MAP) 174/90 (118) Pulse Ox 97 O2 Delivery Room Air 12/14/21 00:00 Intake Total 1100 ml Balance 1100 ml Capillary Refill : Less Than 3 Seconds Constitutional: AAO x 3, well-developed, well-nourished HEENT: PERRL, hearing is well preserved, oral hygience is good Neck: No carotid bruit; carotid pulses are 2 + bilaterally Respiratory: No accessory muscle use, No respiratory distress; chest expansion is symmetric, chest is bilaterally symmetric Cardiovascular: regular rate-rhythm; No JVD; S1 and S2 Gastrointestinal: No tender; soft, round, audible bowel sounds Extremities: abrasion (RLE with a healing abrasion and bruising to her right ankle), no lower extremity edema bilateral Neurologic/Psychiatric: grossly intact (moves all extremities) Skin: No rash on exposed areas, No ulcerations on exposed areas Data Review Labs Laboratory Tests 12/13/21 19:05: White Blood Count 5.6, Red Blood Count 3.97, Hemoglobin 10.8L, Hematocrit 34L, Mean Corpuscular Volume 86, Mean Corpuscular Hemoglobin 27, Mean Corpuscular Hemoglobin Concent 32, Red Cell Distribution Width 25.3H, Platelet Count 147, Mean Platelet Volume 9.9, Immature Granulocyte % (Auto) 1, Neutrophils (%) (Auto) 80H, Lymphocytes (%) (Auto) 14, Monocytes (%) (Auto) 5, Eosinophils (%) (Auto) 0, Basophils (%) (Auto) 1, Neutrophils # (Auto) 4.5, Lymphocytes # (Auto) 0.8L, Monocytes # (Auto) 0.3, Eosinophils # (Auto) 0.0, Basophils # (Auto) 0.0, Immature Granulocyte # (Auto) 0.0, Erythrocyte Sedimentation Rate 17, Prothrombin Time 13.3, INR Comment 1.0, Activated Partial Thromboplast Time 25, D-Dimer 0.32, Sodium Level 137, Potassium Level 2.4*L, Chloride Level 95L, Carbon Dioxide Level 26, Anion Gap 16H, Blood Urea Nitrogen 5L, Creatinine 0.85, Estimat Glomerular Filtration Rate 83, BUN/Creatinine Ratio 6, Glucose Level 103, Calcium Level 8.9, Corrected Calcium 8.7, Magnesium Level 1.1*L, Total Bilirubin 2.2H, Aspartate Amino Transf (AST/SGOT) 174H, Alanine Aminotransferase (ALT/SGPT) 73H, Alkaline Phosphatase 91, Total Creatine Kinase 523H, Creatine Kinase MB 10.2*H, Myoglobin 915.8H, Troponin I < 0.028, C-Reactive Protein High Sensitivity 0.15, B-Type Natriuretic Peptide 52.7, Total Protein 7.8, Albumin 4.2, TSH [place] Testing 0.66, Serum Test, Qualitative NEGATIVE, Serum Alcohol < 10 12/13/21 19:25: Influenza Type A (RT-PCR) Not Detected, Influenza Type B (RT-PCR) Not Detected, SARS-CoV-2 RNA (RT-PCR) Not Detected 12/13/21 20:54: Urine Color YELLOW, Urine Clarity SL CLOUDY, Urine pH 6.5, Urine Specific [place] 1.010L, Urine Protein NEGATIVE, Urine Glucose (UA) NEGATIVE, Urine Ketones TRACEH, Urine Nitrite NEGATIVE, Urine Bilirubin NEGATIVE, Urine Urobilinogen 2.0, Urine Leukocyte Esterase NEGATIVE, Urine RBC (Auto) NEGATIVE, Urine RBC NONE, Urine WBC 0-2, Urine Crystals NONE, Urine Bacteria FEWH, Urine Casts PRESENT, Urine Hyaline Casts RARE, Urine Mucus NEGATIVE, Urine Culture Indicated YES, Urine Opiates Screen NEGATIVE, Urine Oxycodone Screen NEGATIVE, Urine Methadone Screen NEGATIVE, Urine Propoxyphene Screen NEGATIVE, Urine Barbiturates Screen NEGATIVE, Ur Tricyclic Antidepressants Screen NEGATIVE, Urine Phencyclidine Screen NEGATIVE, Urine Amphetamines Screen NEGATIVE, Urine Methamphetamines Screen NEGATIVE, Urine Benzodiazepines Screen POSITIVEH, Urine Cocaine Screen NEGATIVE, Urine Cannabinoids Screen NEGATIVE 12/14/21 04:55: White Blood Count 5.5, Red Blood Count 3.73L, Hemoglobin 10.1L, Hematocrit 32L, Mean Corpuscular Volume 85, Mean Corpuscular Hemoglobin 27, Mean Corpuscular Hemoglobin Concent 32, Red Cell Distribution Width 25.6H, Platelet Count 126L, Mean Platelet Volume 9.8, Immature Granulocyte % (Auto) 0, Neutrophils (%) (Auto) 71, Lymphocytes (%) (Auto) 19, Monocytes (%) (Auto) 9, Eosinophils (%) (Auto) 1, Basophils (%) (Auto) 1, Neutrophils # (Auto) 3.9, Lymphocytes # (Auto) 1.0, Monocytes # (Auto) 0.5, Eosinophils # (Auto) 0.0, Basophils # (Auto) 0.0, Immature Granulocyte # (Auto) 0.0, Sodium Level 139, Potassium Level 2.5*L, Chloride Level 101, Carbon Dioxide Level 25, Anion Gap 13, Blood Urea Nitrogen 4L, Creatinine 0.60, Estimat Glomerular Filtration Rate 109, BUN/Creatinine Ratio 7, Glucose Level 109H, Calcium Level 8.3L, Corrected Calcium 8.8, Magnesium Level 1.8, Total Bilirubin 2.1H, Aspartate Amino Transf (AST/SGOT) 119H, Alanine Aminotransferase (ALT/SGPT) 55, Alkaline Phosphatase 76, Total Protein 6.5, Albumin 3.4 A/P-Cardiology Assessment/Admission Diagnosis Syncope - likely secondary to acute intoxication, dehydration, and electrolyte imbalance - echo on 12/14/21: LVEF 60-65%, grade 1 valencia dysfunction, mod LA enlargement, PASP 50-55 mmHg Uncontrolled HTN Pulm HTN of undetermined etiology ETOH abuse - 1 pint of Vodka approx every other day - immediate cessation advised - management of withdrawal per Medical services Electrolyte abnormalities - d/t chronic ETOH abuse Liver enzyme elevation - d/t chronic ETOH abuse Noncompliance with medications Discussion and Recomendations Syncope likely secondary to acute intoxication and electrolyte abnormalities - replace electrolytes - monitor lab closely ETOH abuse - cessation advise - management of withdrawal per medical services Uncontrolled HTN - Continue Norvasc - Add BB Further recs will be based on her hospital course We would like to thank medical services for this consult. Discussed with Dr Garcia this am JUSTIN CRAMER MD FACP FAC CCDS Dec 14, 2021 09:57
[2021-12-14] MEDS ORDERED: KCL 20 MEQ TAB (K-DUR) PO NR ×3 (12:00→17:00)
[2021-12-14] MEDS ORDERED: OMEP20TA33 PO (12:45)
[2021-12-14] MEDS ORDERED: ASPI-1238 PO (12:45)
[2021-12-14 13:59] LABS: CALCIUM 8.2 MG/DL (8.5-10.1); CREATININE SERUM 0.62 MG/DL (0.60-1.30); POTASSIUM 2.8 MMOL/L (3.6-5.0)
[2021-12-14] MEDS ORDERED: ALPRAZolam 1 MG (XANAX) TAB PO PRN (20:00)
[2021-12-14] MEDS ORDERED: amLODIPine 10 MG (NORVASC) TAB PO ONE (20:00)
[2021-12-14] MEDS ORDERED: ALPRAZolam 1 MG (XANAX) TAB ONE (20:23)
[2021-12-15] MEDS ORDERED: meTOproloL SUCCINATE 50 MG (TOPROL XL) TAB PO SCH (09:00)
== END 2021-12-14 21:57 | disposition left against medical advice (07) | DRG 641 ==
LOC: EDUNIT# 18:31 → ER 18:33 → ICU 20:30 → OBSVTOIN 12-14 07:51
PROVIDERS: ADMIT Family Medicine; ATTEND Family Medicine
DX: E87.6 Hypokalemia (principal); E86.0 Dehydration; I10 Essential (primary) hypertension; R26.81 Unsteadiness on feet; R55 Syncope and collapse; F10.10 Alcohol abuse, uncomplicated; F43.9 Reaction to severe stress, unspecified; F41.9 Anxiety disorder, unspecified; Z20.822 Contact with and (suspected) exposure to COVID-19; F32.A Depression, unspecified; I27.20 Pulmonary hypertension, unspecified; Y90.0 Blood alcohol level of less than 20 mg/100 ml; Z91.14 Patient's other noncompliance with medication regimen; Z28.310 Unvaccinated for COVID-19; Z28.9 Immunization not carried out for unspecified reason; Z82.49 Family history of ischemic heart disease and other diseases of the circulatory system
CPT/HCPCS: 36415; 70450; 71045; 72125; 80048; 80053; 80306; 80320; 81000; 82550; 82553; 83735; 83874; 83880; 84443; 84484; 84703; 85025; 85379; 85610; 85652; 85730; 86141; 87088; 87636; 93005; 93041; 93306